=== PATIENT | female | born 1930 | race Caucasian/White ===

== ENCOUNTER → 2017-12-12 | Outpatient (CLI) | payer BC ==
[~2017-12-12] MED LIST: CLOTCRE33 TOP; DICL1GEL12 TOP; LACT10SO17 PO; LORA-741 PO; OXYC-57 PO; TRIA0.5O TOP; ZOLP6.252 PO
--- NOTE | 2017-12-12 11:25 | DIAGNOSTIC IMAGING REPORT ---
BILATERAL KNEES, 4 VIEWS EACH CLINICAL HISTORY: BILATERAL KNEE PAIN COMPARISON STUDY: Left knee 12/14/2014. FINDINGS: No fracture or dislocation within the right or left knee. Faint bilateral chondrocalcinosis. Moderate cartilage space narrowing within the medial compartment of the left knee with marginal osteophytes. Mild cartilage space narrowing within the medial compartment of the right knee. No significant knee effusion. Soft tissues are unremarkable. Mild bilateral patellofemoral chondromalacia. IMPRESSION: 1. No fractures within the right or left knee. 2. Mild chondrocalcinosis. 3. Bilateral knee osteoarthritis as described above most pronounced at the medial compartments. Electronically signed by: Arnie Christensen M.D. 12/12/2017 11:24 AM Dictated Date/Time: 12/12/2017 11:21 AM
== END | disposition home or self-care (01) ==
LOC: C.RDSM 10:55
PROVIDERS: ATTEND Physician Assistant
DX: M25.561 Pain in right knee (principal); M25.562 Pain in left knee; M17.0 Bilateral primary osteoarthritis of knee

== ENCOUNTER → 2018-05-19 | Outpatient (CLI) | payer BC ==
[~2018-05-19] MED LIST changes: -LACT10SO17 PO; +LACT10SO3 PO
[2018-05-19 13:04] LABS: BASO % 0.4 %; BASO ABS # 0.03 K/uL (0-0.2); EOS % 2.5 %; EOS ABS # 0.19 K/uL (0-0.5); HEMATOCRIT 38.8 % (37-47); HEMOGLOBIN 12.5 g/dL (12.0-16.0); IG# 0.02 K/uL (0.00-0.02); LYMPH % 27.3 %; LYMPH ABS # 2.05 K/uL (1.2-3.4); MEAN CORPUSCULAR HGB CONC 32.2 g/dl (32-36); MEAN PLATELET VOLUME 10.1 fL (7.4-10.4); MONO % 10.1 %; MONO ABS # 0.76 K/uL (0.11-0.59); NEUT % 59.4 %; NEUT ABS # 4.47 K/uL (1.4-6.5); PLATELET COUNT 572 K/uL (130-400); RED CELL DISTRIBUTION WIDTH CV 14.7 % (11.5-14.5); RED CELL DISTRIBUTION WIDTH SD 48.5 fL (36.4-46.3); WHITE BLOOD COUNT 7.52 K/uL (4.8-10.8)
[2018-05-19 13:59] LABS: ALBUMIN 3.8 gm/dl (3.4-5.0); ALKALINE PHOSPHATASE 94 U/L (45-117); ALT/SGPT 17 U/L (12-78); AST/SGOT 15 U/L (15-37); BLOOD UREA NITROGEN 24 mg/dl (7-18); CALCIUM 9.3 mg/dl (8.5-10.1); CARBON DIOXIDE 31 mmol/L (21-32); CREATININE 0.81 mg/dl (0.60-1.20); GLUCOSE 94 mg/dl (70-99); POTASSIUM 3.8 mmol/L (3.5-5.1); SODIUM 138 mmol/L (136-145); TOTAL PROTEIN 7.2 gm/dl (6.4-8.2)
== END | disposition home or self-care (01) ==
LOC: C.LABOAKS 16:26
PROVIDERS: ATTEND Physician Assistant
DX: R60.9 Edema, unspecified (principal)